=== PATIENT | male | born 1995 | race Two or more races ===

== ENCOUNTER 2020-03-12 10:33 | Emergency (ER) | payer OTHER, SELFPAY ==
[2020-03-12 12:10] VITALS: BP 124/58; PULSE 66; RESP 18; TEMP 37.4; O2SAT 100; BMI 22.1
--- NOTE | 2020-03-12 13:22 | ED.BACK ---
HPI - Back Pain/Injury General Chief Complaint: Back Pain/Injury Stated Complaint: back pain - work injury Time Seen by Provider: 03/12/20 13:17 Source: patient Mode of arrival: ambulatory Limitations: no limitations History of Present Illness HPI Narrative: right sided low back pain after lifting something heavy at work today. Radiates to right posterior thigh. No saddle anesthesia. No incontinince. MD elicited complaint: back pain and back injury Onset (ago): hour(s) Timing: constant Severity: moderate Quality: sharp and stabbing Location: lumbar spine Radiation: right upper leg Exacerbating factors: movement Relieving factors: immobilization Context: while lifting Associated symptoms: denies other symptoms Related Data Previous Rx's Medication Instructions Recorded cyclobenzaprine 10 mg PO Q8H PRN #20 tab 03/12/20 lidocaine [Lidoderm] 1 patch TOPICAL DAILY #15 ea 03/12/20 naproxen 500 mg PO BID PRN #20 tab 03/12/20 Allergies Allergy/AdvReac Type Severity Reaction Status Date / Time No Known Allergies Allergy Verified 03/12/20 12:15 Review of Systems Review of Systems: Yes all other systems are reviewed and are negative Constitutional: Constitutional: Reports no additional constitutional complaints, Denies body ache(s), Denies chills, Denies fever(s) and Denies weakness Eyes: Eyes: Reports no additional eye complaints and Denies change in vision ENT: Reports system reviewed and no additional complaints, except as documented, Denies nasal congestion and Denies nasal discharge Cardiovascular: Cardiovascular: Reports no additional cardiovascular complaints, Denies chest pain, Denies leg edema and Denies dyspnea Respiratory: Respiratory: Reports no additional respiratory complaints, Denies cough and Denies dyspnea Gastrointestinal: Gastrointestinal: Reports no additional gastrointestinal complaints, Denies abdominal pain, Denies diarrhea, Denies nausea and Denies vomiting Genitourinary: Genitourinary: Reports no additional male genitourinary complaints and Denies urinary incontinence Musculoskeletal: Musculoskeletal: Reports no additional musculoskeletal complaints, Denies abnormal gait, Reports back pain, Denies arthralgias, Denies joint swelling, Denies muscle weakness, Denies numbness, Reports radiating pain into limb, Denies stiffness and Denies tingling Integumentary/Breasts: Skin/Breast: Reports system reviewed and no additional complaints, except as docu and Denies rash Neurologic: Reports system reviewed and no additional complaints, except as documented, Denies Abnormal speech present, Denies abnormal gait, Denies focal weakness, Denies numbness, Denies tingling and Denies weakness PMFSH Past Medical History Attestation statement: The following information was validated with the patient. Source: obtained from family and nursing notes reviewed Medical History No known health problems Social History Social History Alcohol intake: current Alcohol intake frequency: a few times a week Alcohol type: beer, wine and hard liquor Smoking Status: Current every day smoker Smoked in Last 30 Days: Yes Use of substances other than those prescribed or required for medical reasons: Yes Substance Use Type: Marijuana Substance Use Frequency: Daily Advance Directives: No Advance Directives Information Provided: Yes Physical Exam Vital Signs and I&O and Narrative: Vital Signs and I&O: Vital Signs Temp 99.3 F 03/12/20 12:10 Pulse 66 03/12/20 12:10 Resp 18 03/12/20 12:10 BP 124/58 L 03/12/20 12:10 Pulse Ox 100 03/12/20 12:10 Intake & Output 03/11/20 03/12/20 03/12/20 18:59 06:59 18:59 Weight 62.142 kg Body Mass Index 22.1 Const: General: cooperative, healthy appearing, comfortable and no acute distress Orientation/consciousness: patient oriented x3 Limitations: no limitations HENMT: Head: Yes normal to inspection Ears: hearing grossly normal bilaterally General nose exam: Normal external nose present Face and sinus: Yes normal facial exam Mouth: Normal oral and palatal mucosa present Throat: Yes posterior oropharynx normal Eyes: General: appearance normal, both eyes and all related structures Pupils: Equal, round and reactive pupils present Neck: Neck: Yes normal visual inspection Chest: Chest palpation & inspection: normal inspection of the chest Resp: Effort & Inspection: normal respiratory effort Auscultation: clear to auscultation bilaterally Cardio: Palpation: normal PMI Rate: regular rate Rhythm: regular rhythm Peripheral pulses: Peripheral pulses 2+ throughout GI: Inspection: Yes normal to inspection Palpation (GI): Soft to palpation and nontender Auscultation: normal bowel sounds Back/Spine/Pelvis: Thoracic/Lumbar Spine: thoracic and lumbar spine normal to inspection, thoraco-lumbar ROM limited (+palpable spasm ) with forward flexion, with lateral flexion to the right, with lateral flexion to the left, with rotation to the right and with rotation to the left, lumbar spinal tenderness (Right paraspinal tenderness. no midline tenderness/step offs or deformities) and straight leg raise positive (right side ) Skin: General skin exam: no rashes or lesions noted Neuro: General: patient oriented x3 Cranial nerves: Yes Equal, round and reactive pupils present Speech: No Abnormal speech present Gait exam (Neuro): Normal gait present Motor exam (neuro): 5/5 motor strength present throughout and Motor abnormalities not present Sensory Exam: Normal double simultaneous stimulation for sensation Extrem: General: Yes normal to inspection MDM - Back Pain/Injury MDM Narrative Medical decision making narrative: exam c/w with lumbar strain. No midline tenderness, red flag symptoms or neuro deficits. Reviewed worrisome signs/symptoms with patient and when to return to the ED. comfortable with discharge home. Discharge Plan Discharge Clinical Impression: Strain of lumbar region Patient Disposition: Home, Self-Care Instructions: Low Back Strain (ED) Additional Instructions: heat or ice gentle stretching no heavy lifting or bending Call work connection for clearance to return to work [phone] Prescriptions: New cyclobenzaprine 10 mg tablet 10 mg PO Q8H PRN (Reason: muscle spasm) Qty: 20 RF: 0 lidocaine [Lidoderm] 5 % adhesive patch,medicated 1 patch topical DAILY Qty: 15 RF: 0 naproxen 500 mg tablet 500 mg PO BID PRN (Reason: pain) Qty: 20 RF: 0 Referrals: Physician,None [Primary Care Provider] - 5 days Stand Alone Forms: Work/School Release
== END 2020-03-12 13:39 | disposition home or self-care (01) ==
PROVIDERS: Emergency Provider Internal Medicine
DX: S39.012A Strain of muscle, fascia and tendon of lower back, initial encounter (principal); M79.604 Pain in right leg; X50.1XXA Overexertion from prolonged static or awkward postures, initial encounter; X50.0XXA Overexertion from strenuous movement or load, initial encounter; X50.9XXA Other and unspecified overexertion or strenuous movements or postures, initial encounter; Y93.9 Activity, unspecified; Y92.9 Unspecified place or not applicable; Y99.0 Civilian activity done for income or pay; F12.90 Cannabis use, unspecified, uncomplicated; F17.200 Nicotine dependence, unspecified, uncomplicated; Z71.6 Tobacco abuse counseling
CPT/HCPCS: 99283; 99284

== ENCOUNTER → 2020-03-15 14:05 | Outpatient (BNVA) | payer OTHER, SELFPAY | PROVIDERS: Visit Provider Internal Medicine | DX: S39.012A Strain of muscle, fascia and tendon of lower back, initial encounter (principal); X50.9XXA Other and unspecified overexertion or strenuous movements or postures, initial encounter | CPT/HCPCS: 99214 ==

== ENCOUNTER → 2020-03-21 10:46 | Outpatient (BNVA) | payer OTHER, SELFPAY | PROVIDERS: Visit Provider Internal Medicine | DX: S39.012A Strain of muscle, fascia and tendon of lower back, initial encounter (principal); X58.XXXA Exposure to other specified factors, initial encounter | CPT/HCPCS: 99213 ==

== ENCOUNTER → 2020-03-30 08:28 | Outpatient (BNVA) | payer OTHER, SELFPAY | PROVIDERS: Visit Provider Internal Medicine | DX: S39.012A Strain of muscle, fascia and tendon of lower back, initial encounter (principal); X50.0XXA Overexertion from strenuous movement or load, initial encounter | CPT/HCPCS: 99213 ==

== ENCOUNTER 2020-04-02 07:00 | Outpatient (RCR) | payer OTHER, SELFPAY ==
--- NOTE | 2020-03-26 11:26 | MHC.PT.EP ---
[facility] [place] Office [place] Office [place] Office [address]olfo Tobin [address] [phone] F: [phone] F: [phone] F: [phone] F: [phone] Physical Therapy Plan of Care Date of Evaluation: 03/26/20 Date of Surgery: Diagnosis: LUMBAR STRAIN Assessment: TARUN DE LA PAZ PRESENTS WITH S/S CONSISTENT WITH LUMBAR STRAIN, QUADRATUS LUMBORUM AND PSOAS INVOLVEMENT LEADING TO ALTERED PELVIC POSITIONING. UPON EXAM IMPAIRMENTS INCLUDE DECREASED LE AND LUMBAR ROM AND STRENGTH, DECREASED SOFT TISSUE EXTENSIBILITY, ALTERED SACROILIAC MECHANICS, ALTERED GAIT PATTERNING AND INCREASED PAIN. FUNCTIONAL LIMITATIONS INCLUDE DECREASED ABILITY TO PERFORM HEAVIER DEMAND HOMEMAKING TASKS, DECREASED ABILITY TO PERFORM LIFTING, BENDING, PUSHING AND PULLING, DECREASED ABILITY TO PERFORM FUNCTIONAL SQUAT,DECREASED ABILITY TO PERFORM WORK TASKS AND DISRUPTED SLEEP. Frequency and Duration: The patient will be seen 2 X WEEK FOR 5 WEEKS Short Term Goals: INDPENDENT WITH HOME EXERCISE PROGRAM AND SELF MANAGEMENT OF SYMPTOMS IN 2 WEEKS Senior Care Goals: TO TOLERATE LIFTING UP TO 30# WITH APPROPRIATE BODY MECHANICS FROM FLOOR TO WAIST WITHOUT VERBAL CUING IN 5 WEEKS TO RETURN TO WORK FT/FD IN 5 WEEKS TO DEMONSTRATE FULL FUNCTIONAL SQUAT WITHOUT PAIN GREATER THAN 3/10 IN 5 WEEKS Treatment Plan: Modalities to reduce pain, spasms and effusion. Manual therapy to restore motion and function. Therapeutic exercise to improve strength and flexibility. Neuromuscular re-education for posture and balance. Therapeutic activities to return to functional activities of daily living. Please sign and return to therapist. Thank you for your referral.
--- NOTE | 2020-04-26 14:41 | MHC.PT.DC ---
[facility] [place] Office [place] Office [place] Office [address] [phone] F: [phone] F: [phone] F: [phone] F: [phone] Physical Therapy Discharge Report Diagnosis: LUMBAR STRAIN Date of Surgery: n/a Date of Evaluation: 03/26/20 Date of Discharge: 04/13/20 Treatments to Date: 3 Cancellations to Date: 3 No Shows to Date: 1 Discharge Status: Patient Elected to Stop Discharge Summary: Pt PHONED DEPARTMENT AND STATED HE WOULD BE UNABLE TO ATTEND SESSIONS AND DISCHARGED HIMSELF FROM THERAPY. STATUS IS UNKNOWN AT THIS TIME Electronically signed by: MITCH BURROWS PT, DPT Please sign and return to therapist. Thank you for your referral.
== END 2020-05-21 09:23 | disposition other institution (70) ==
LOC: HO.PT 07:00
PROVIDERS: Visit Provider Internal Medicine
DX: S39.012D Strain of muscle, fascia and tendon of lower back, subsequent encounter (principal)
CPT/HCPCS: 97014; 97110; 97112; 97140; 97162

== ENCOUNTER → 2020-04-13 14:39 | Outpatient (BNVA) | payer OTHER, SELFPAY | PROVIDERS: Visit Provider Internal Medicine | DX: S39.012D Strain of muscle, fascia and tendon of lower back, subsequent encounter (principal); X58.XXXD Exposure to other specified factors, subsequent encounter | CPT/HCPCS: 99213 ==

== ENCOUNTER → 2020-04-27 14:57 | Outpatient (BNVA) | payer OTHER, SELFPAY | PROVIDERS: Visit Provider Internal Medicine | DX: S39.012D Strain of muscle, fascia and tendon of lower back, subsequent encounter (principal); X58.XXXD Exposure to other specified factors, subsequent encounter | CPT/HCPCS: 99213 ==